=== PATIENT | female | born 1975 | race Two or more races ===

== ENCOUNTER 2022-08-30 22:27 | Emergency (ER) | payer MEDICAID, OTHER ==
[~2022-08-30] VITALS: Ht 162.6 cm; Wt 52.0 kg
[2022-08-30] MEDS ORDERED: SODIUM CHLORIDE 0.9% 1,000 ML IV ONE (23:00)
[2022-08-30] MEDS ORDERED: HYDROmorphone HCL 2 MG/ML VL/or syr IV ONE (23:00)
[2022-08-30] MEDS ORDERED: ONDANSETRON HCL 4 MG/2 ML VIAL IV ONE (23:00)
[2022-08-31 00:01] LABS: Basophils # (auto) 0 10 ^3/uL (0-0.2); Basophils % (auto) 0.5 % (0.0-2.0); Eosinophils # (auto) 0 10 ^3/uL (0-0.8); Hematocrit 27.6 % (36.0-46.0); Hemoglobin 8.5 g/dL (12.2-16.2); Lymphocytes # (auto) 1.2 10 ^3/uL (0.4-5.4); Mean Corpuscular Volume 68.3 fL (80.0-100.0); Neutrophils # (auto) 3.1 10 ^3/uL (1.6-8.6); White Blood Cell 4.7 10^3/uL (4.4-10.8)
[2022-08-31 00:02] LABS: Eosinophils % (auto) 0.7 % (0.0-7.0); Lymphocytes % (auto) 24.9 % (10.0-50.0); Mean Corpuscular Hgb Conc. 30.8 g/dL (32.0-36.0); Monocytes # (auto) 0.3 10 ^3/uL (0-1.3); Monocytes % (auto) 7.3 % (0.0-12.0); Neutrophils % (auto) 66.6 % (37.0-80.0); Red Blood Cells 4.04 10^6/uL (4.0-5.20); Red Cell Distribution Width 17.6 % (11.8-14.3)
[2022-08-31 00:13] LABS: Albumin 3.6 g/dL (3.4-5.0); Calcium 8.9 mg/dL (8.5-10.1); Potassium 3.8 mmol/L (3.5-5.1)
[2022-08-31 00:15] LABS: BUN/Creatinine Ratio 30.6
[2022-08-31 00:25] LABS: Bilirubin, Total 0.2 mg/dL (0.2-1.0); Total Protein 7.2 g/dL (6.4-8.2)
[2022-08-31] MEDS ORDERED: CIPROFLOXACIN HCL 500 MG TAB PO ONE (03:15)
[2022-08-31 05:23] VITALS: BP 134/76
[2022-08-31] MEDS ORDERED: PERCOT PO (05:43)
[2022-08-31] MEDS ORDERED: ONDA-144 PO (05:43)
[2022-08-31] MEDS ORDERED: CIPR-173 PO (05:43)
== END 2022-08-31 05:52 | disposition home or self-care (01) ==
LOC: ER 22:27 → EDBD 22:27 → ER 08-31 05:48
DX: K52.9 Noninfective gastroenteritis and colitis, unspecified (principal); Z98.84 Bariatric surgery status
CPT/HCPCS: 36415; 74176; 80053; 83690; 85025; 96361; 96374; 96375; 99284; J1170; J2405; J7030